=== PATIENT | male | born 1995 | race Hispanic/Latino ===

== ENCOUNTER 2022-10-24 11:01 | Emergency (ER) | payer OTHER | END 2022-10-24 12:28 | disposition home or self-care (01) | LOC: MADERS 11:01 | DX: S63.614A Unspecified sprain of right ring finger, initial encounter (principal); S67.194A Crushing injury of right ring finger, initial encounter; W23.1XXA Caught, crushed, jammed, or pinched between stationary objects, initial encounter; Y99.0 Civilian activity done for income or pay ==